=== PATIENT | male | born 1975 | race Caucasian/White ===

== ENCOUNTER 2016-11-11 09:31 | Day surgery (SDC) | payer MEDICARE, MEDICAID ==
[2016-11-10 08:41] VITALS: BMI 30.2
[2016-11-11] MEDS ORDERED: Ciprofloxacin 0.2% Otic ONE (11:43)
[2016-11-11] MEDS ORDERED: Fentanyl 100 MCG/2 ML VIAL ONE (11:57)
[2016-11-11] MEDS ORDERED: Propofol 200 MG/20 ML VIAL ONE (12:09)
[2016-11-11] MEDS ORDERED: Ondansetron HCl/PF 4 MG/2 ML Vial ONE (12:09)
[2016-11-11] MEDS ORDERED: Lidocaine 2% PF 10 ML AMP (For Epidural Use) ONE (12:09)
--- NOTE | 2016-11-12 08:52 | OP ---
EPREOPERATIVE DIAGNOSES: 1. Obi has bilateral cerumen impaction. 2. Down syndrome. POSTOPERATIVE DIAGNOSES: 1. Obi has bilateral cerumen impaction. 2. Down syndrome. PROCEDURE PERFORMED: Evaluation under anesthesia with removal of impacted cerumen using binocular m icroscopy. PROCEDURE IN DETAIL: After consent was obtained, the patient was identified, brought to the operati ng room and placed on the operating room table in the supine position. General mask anesthesia was obtained. The patient was positioned for surgery. The ears were systematically evaluated under lizeth roscopic visualization and wax was removed with a combination of using a curettage as well as peroxi de and suction. Ultimately, the tympanic membrane was visualized on the left side and found to be h ealthy with a narrow ear canal. We then turned our attention to the contralateral side where simila r findings were encountered. Again, the wax was removed. The tympanic membrane was found to be nor mal. Otic drops were applied at the end of the case. The patient was awakened and taken to the rec overy room where she remained in stable condition prior to discharge home.
== END 2016-11-11 13:35 | disposition home or self-care (01) ==
LOC: SDC 09:31
PROVIDERS: ATTEND Specialist
PROC: 09C47ZZ Extirpation of Matter from Left External Auditory Canal, Via Natural or Artificial Opening (ICD-10-PCS; principal; 2016-11-11)
PROC: 09C37ZZ Extirpation of Matter from Right External Auditory Canal, Via Natural or Artificial Opening (ICD-10-PCS; 2016-11-11)
DX: H61.23 Impacted cerumen, bilateral (principal); I51.9 Heart disease, unspecified; Q90.9 Down syndrome, unspecified; Z90.89 Acquired absence of other organs; Z98.890 Other specified postprocedural states
CPT/HCPCS: J2001; J2405; J2704; J3010